=== PATIENT | male | born 1960 | race Hispanic/Latino ===

== ENCOUNTER 2017-11-05 16:14 | Emergency (ER) | payer SELFPAY ==
[2017-11-05] MEDS ORDERED: MAGNE/ALUM HYDROXD 30 ML UCUP ONE (17:33)
[2017-11-05] MEDS ORDERED: FAMOTIDINE 20 MG/2 ML VIAL IV ONE (17:33)
[2017-11-05] MEDS ORDERED: LIDOCAINE VISCOUS 2% SOLN 15 ML UDC ONE (17:33)
[2017-11-05 17:58] LABS: Absolute Lymphocytes (CBC) 2.8 K/uL (0.7-4.9); Absolute Monocytes 0.8 K/uL (0.1-1.3); Absolute Neutrophil 4.6 K/uL (1.8-8.0); Basophils % 0.8 % (0-1.3); Eosinophils % 1.5 % (0-4.4); Lymphocytes % 32.9 % (15.3-44.8); MCH 31.1 pg (27.0-35.0); MCV 88.8 fL (80-100); MPV 8.8 fL (7.6-11.3); Monocytes % 9.6 % (3.3-12.3)
[2017-11-05 18:10] LABS: ALT/SGPT 151 U/L (12-78); AST/SGOT 188 U/L (15-37); Albumin 3.4 g/dL (3.4-5.0); Alkaline Phosphatase 87 U/L (45-117); BUN Blood Urea Nitrogen 8 mg/dL (7-18); Bicarbonate 28 mmol/L (21-32); Bilirubin Direct 0.2 mg/dL (0-0.2); Bilirubin Total 0.6 mg/dL (0.2-1.0); Glucose Level 148 mg/dL (74-106); Lipase 112 U/L (73-393); Potassium 4.1 mmol/L (3.5-5.1); Sodium Level 138 mmol/L (136-145)
--- NOTE | 2017-11-05 18:45 | EDPHYS ---
Physician Documentation [facility] Name: Becki Freeman Age: 57 yrs Sex: Male : 1960 Arrival Date: 11/05/2017 Time: 16:15 Bed 7 Private MD: Out, [facility], [facility] ED Physician Evelio Saha HPI: 11/05 18:13 This 57 yrs old Male presents to ER via Ambulatory with complaints of rn Abdominal Pain. 18:13 The patient presents with abdominal pain in the epigastric area. Onset: The rn symptoms/episode began/occurred 4 hour(s) ago. The symptoms do not radiate. Associated signs and symptoms: Pertinent positives: nausea, Pertinent negatives: blood in stools, chest pain, constipation, diarrhea, dysuria, fever. The symptoms are described as achy. Severity of pain: At its worst the pain was mild in the emergency department the pain is unchanged. The patient has experienced similar episodes in the past. Reports epigastric abd pain, began after eating nachos, non-radiating, no fever, has had gallbladder and appendix removed. . Historical: - Allergies: 16:28 No Known Allergies; aj1 - Home Meds: 16:28 diabetes medication [Active]; thyroid medication [Active]; BP medication [Active]; aj1 - PMHx: 16:28 Diabetes - NIDDM; Hypothyroidism; Hypertension; aj1 - Social history:: Smoking status: Patient/guardian denies using tobacco. - Ebola Screening: : Patient denies travel to an Ebola-affected area in the 21 days before illness onset. - Family history:: not pertinent. - Hospitalizations: : No recent hospitalization is reported. ROS: 18:13 Constitutional: Negative for fever, chills, and weight loss, Neck: Negative for injury, rn pain, and swelling, Cardiovascular: Negative for chest pain, palpitations, and edema, Respiratory: Negative for shortness of breath, cough, wheezing, and pleuritic chest pain, Abdomen/GI: Negative for vomiting, diarrhea, and constipation, MS/Extremity: Negative for injury and deformity, Skin: Negative for injury, rash, and discoloration, Neuro: Negative for headache, weakness, numbness, tingling, and seizure. Exam: 18:13 Constitutional: This is a well developed, well nourished patient who is awake, alert, rn and in no acute distress. Head/Face: Normocephalic, atraumatic. Eyes: Pupils equal round and reactive to light, extra-ocular motions intact. Lids and lashes normal. Conjunctiva and sclera are non-icteric and not injected. Cornea within normal limits. Periorbital areas with no swelling, redness, or edema. Cardiovascular: Regular rate and rhythm with a normal S1 and S2. No gallops, murmurs, or rubs. Normal PMI, no JVD. No pulse deficits. Respiratory: Lungs have equal breath sounds bilaterally, clear to auscultation and percussion. No rales, rhonchi or wheezes noted. No increased work of breathing, no retractions or nasal flaring. Abdomen/GI: soft, mild epigastric abd tenderness, no rebound MS/ Extremity: Pulses equal, no cyanosis. Neurovascular intact. Full, normal range of motion. Equal circumference. Neuro: Awake and alert, GCS 15, oriented to person, place, time, and situation. Cranial nerves II-XII grossly intact. Motor strength 5/5 in all extremities. Sensory grossly intact. Cerebellar exam normal. Normal gait. Vital Signs: 16:30 BP 157 / 91; Pulse 82; Resp 18; Temp 97.2(TE); Pulse Ox 98% on R/A; Height 5 ft. 9 in. aj1 (175.26 cm) (R); Pain 8/10; 17:30 BP 156 / 86; Pulse 79; Resp 16; Pulse Ox 100% on R/A; hb 18:34 BP 153 / 95; Pulse 77; Resp 17; Pulse Ox 100% on R/A; Pain 3/10; hb MDM: 16:58 Patient medically screened. rn 18:40 Differential diagnosis: gastritis, gastroesophageal reflux disease, Hepatitis, rn non-specific abd pain, pancreatitis, Peptic Ulcer Disease. Data reviewed: vital signs, nurses notes, lab test result(s), and as a result, I will discharge patient. Counseling: I had a detailed discussion with the patient and/or guardian regarding: the historical points, exam findings, and any diagnostic results supporting the discharge/admit diagnosis, lab results, the need for outpatient follow up, to return to the emergency department if symptoms worsen or persist or if there are any questions or concerns that arise at home. Response to treatment: the patient's symptoms have markedly improved after treatment, and as a result, I will discharge patient. Special discussion: I discussed with the patient/guardian in detail that at this point there is no indication for admission to the hospital. It is understood, however, that if the symptoms persist or worsen the patient needs to return immediately for re-evaluation. Based on the history and exam findings, there is no indication for further emergent testing or inpatient evaluation. I discussed with the patient/guardian the need to see the suspender maker for further evaluation of the symptoms. ED course: Pt improved, will dc home with GI f/u, antacids, both prescription and OTC zantac.. 11/05 17:13 Order name: Basic Metabolic Panel; Complete Time: 18:13 rn 11/05 17:13 Order name: CBC with Diff; Complete Time: 18:09 rn 11/05 17:13 Order name: Hepatic Function; Complete Time: 18:13 rn 11/05 17:13 Order name: Lipase; Complete Time: 18:13 rn 11/05 18:41 Order name: Urine Dipstick--Ancillary (enter results) bd 11/05 17:13 Order name: IV Saline Lock; Complete Time: 17:43 rn 11/05 17:13 Order name: Labs collected and sent; Complete Time: 17:43 rn 11/05 17:14 Order name: EKG; Complete Time: 17:14 rn 11/05 17:14 Order name: EKG - Nurse/Tech; Complete Time: 17:35 rn Administered Medications: 17:42 Drug: GI Cocktail without - (Maalox Suspension 30 ml, Lidocaine Liquid 2 % 15 hb ml) Route: PO; 17:42 Drug: Pepcid 20 mg Route: IVP; Site: right antecubital; hb Disposition: 11/05/17 18:45 Discharged to Home. Impression: Gastritis, unspecified. - Condition is Stable. - Discharge Instructions: Gastritis, Adult. - Prescriptions for Nexium 20 mg Oral Capsule - take 1 capsule by ORAL route once daily; 20 capsule. Zantac 300 mg Oral Tablet - take 1 tablet by ORAL route At bedtime; 30 tablet. - Medication Reconciliation Form, Thank You Letter, Antibiotic Education, Prescription Opioid Use form. - Follow up: Enrique Dominguez MD; When: As needed; Reason: Recheck today's complaints, Re-evaluation by your physician. - Problem is new. - Symptoms have improved. Signatures: Dispatcher [employer] EDKaci Garcia RN RN aj1 Evelio Saha MD MD rn Baxter, Heather, RN RN Corrections: (The following items were deleted from the chart) 18:53 18:45 11/05/2017 18:45 Discharged to Home. Impression: Gastritis, unspecified. hb Condition is Stable. Forms are Medication Reconciliation Form, Thank You Letter, Antibiotic Education, Prescription Opioid Use. Follow up: Enrique Dominguez; When: As needed; Reason: Recheck today's complaints, Re-evaluation by your physician. Problem is new. Symptoms have improved. rn
--- NOTE | 2017-11-05 18:45 | ER ---
Nurse's Notes [facility] Name: Becki Freeman Age: 57 yrs Sex: Male : 1960 Arrival Date: 11/05/2017 Time: 16:15 Bed 7 Private MD: Out, [facility] Diagnosis: Gastritis, unspecified Presentation: 11/05 16:26 Presenting complaint: Patient states: Epigastric pain for the past 3-4 hours. Reports aj1 diarrhea, denies N/V. Denies fever. Transition of care: patient was not received from another setting of care. Onset of symptoms was November 05, 2017 at 13:00. Risk Assessment: Do you want to hurt yourself or someone else? Patient reports no desire to harm self or others. Initial Sepsis Screen: Does the patient meet any 2 criteria? No. Patient's initial sepsis screen is negative. Does the patient have a suspected source of infection? Yes: Acute abdominal pain. Care prior to arrival: None. 16:26 Method Of Arrival: Ambulatory aj1 16:26 Acuity: FRANCIE 3 aj1 Triage Assessment: 16:30 General: Appears in no apparent distress. uncomfortable, Behavior is calm, cooperative, aj1 appropriate for age. Pain: Complains of pain in epigastric area Pain currently is 8 out of 10 on a pain scale. Neuro: Level of Consciousness is awake, alert, obeys commands. Cardiovascular: Patient's skin is warm and dry. Respiratory: Airway is patent Respiratory effort is even, unlabored, Respiratory pattern is regular, symmetrical. GI: Reports upper abdominal pain, diarrhea, Patient currently denies nausea, vomiting. Historical: - Allergies: 16:28 No Known Allergies; aj1 - Home Meds: 16:28 diabetes medication [Active]; thyroid medication [Active]; BP medication [Active]; aj1 - PMHx: 16:28 Diabetes - NIDDM; Hypothyroidism; Hypertension; aj1 - Social history:: Smoking status: Patient/guardian denies using tobacco. - Ebola Screening: : Patient denies travel to an Ebola-affected area in the 21 days before illness onset. - Family history:: not pertinent. - Hospitalizations: : No recent hospitalization is reported. Screenin:43 Abuse screen: Denies threats or abuse. Denies injuries from another. Nutritional hb screening: No deficits noted. Tuberculosis screening: No symptoms or risk factors identified. Fall Risk None identified. Assessment: 17:43 General: Appears in no apparent distress. uncomfortable, Behavior is calm, cooperative. hb Pain: Pain currently is 4 out of 10 on a pain scale. Neuro: Level of Consciousness is awake, alert, obeys commands, Oriented to person, place, time, situation, Pupils are PERRLA. Cardiovascular: Heart tones S1 S2 present Capillary refill < 3 seconds Patient's skin is warm and dry. Parent/caregiver reports patient has had chest pain. Respiratory: Airway is patent Trachea midline Respiratory effort is even, unlabored, Respiratory pattern is regular, symmetrical, Breath sounds are clear bilaterally. GI: Abdomen is non-distended, Bowel sounds present X 4 quads. Abd is soft and non tender X 4 quads. Reports upper abdominal pain, nausea. : No signs and/or symptoms were reported regarding the genitourinary system. EENT: No signs and/or symptoms were reported regarding the EENT system. Derm: No signs and/or symptoms reported regarding the dermatologic system. Skin is intact, is healthy with good turgor. Musculoskeletal: No signs and/or symptoms reported regarding the musculoskeletal system. 18:34 Reassessment: Patient appears in no apparent distress at this time. Patient and/or hb family updated on plan of care and expected duration. Pain level reassessed. Patient is alert, oriented x 3, equal unlabored respirations, skin warm/dry/pink. Vital Signs: 16:30 BP 157 / 91; Pulse 82; Resp 18; Temp 97.2(TE); Pulse Ox 98% on R/A; Height 5 ft. 9 in. aj1 (175.26 cm) (R); Pain 8/10; 17:30 BP 156 / 86; Pulse 79; Resp 16; Pulse Ox 100% on R/A; hb 18:34 BP 153 / 95; Pulse 77; Resp 17; Pulse Ox 100% on R/A; Pain 3/10; hb ED Course: 16:15 Patient arrived in ED. sb2 16:16 Out, of [facility] is Private Physician. sb2 16:27 Triage completed. aj1 16:30 Arm band placed on Patient placed in waiting room. aj1 16:58 Evelio Saha MD is Attending Physician. rn 17:32 Inserted saline lock: 20 gauge in right antecubital area, using aseptic technique. hb Blood collected. 17:35 EKG done, by ED staff, reviewed by Evelio Saha MD. em1 17:42 Deborah Ortiz, RN is Primary Nurse. hb 17:43 Patient has correct armband on for positive identification. Bed in low position. Call hb light in reach. Side rails up X 1. 18:45 Enrique Dominguez MD is Referral Physician. rn 18:52 No provider procedures requiring assistance completed. IV discontinued, intact, hb bleeding controlled, No redness/swelling at site. Pressure dressing applied. Administered Medications: 17:42 Drug: GI Cocktail without - (Maalox Suspension 30 ml, Lidocaine Liquid 2 % 15 hb ml) Route: PO; 17:42 Drug: Pepcid 20 mg Route: IVP; Site: right antecubital; hb Outcome: 18:45 Discharge ordered by MD. rn 18:52 Discharged to home ambulatory. hb 18:52 Condition: stable 18:52 Discharge instructions given to patient, family, Instructed on discharge instructions, follow up and referral plans. medication usage, Demonstrated understanding of instructions, follow-up care, medications, Prescriptions given X 2. 18:53 Patient left the ED. hb Signatures: Kaci Gagnon RN RN aj1 Evelio Saha MD MD rn Martinez, Eric em1 Deborah Ortiz, RADHA RN Florencia Crockett sb2
[2017-11-05 19:01] LABS: Urine Blood NEGATIVE (NEG); Urine Glucose NEGATIVE (NEG); Urine Protein NEGATIVE (NEG); Urine Specific Gravity 1.025 (1.005-1.030); Urine pH 7.5 (5.0-7.0)
--- NOTE | 2017-11-06 07:02 | EKG ---
Test Date: 2017-11-05 Test Time: 17:31:49 A And P Technician: JEMIMA MEASUREMENT RESULTS: Intervals: Rate: 78 WI: 178 QRSD: 94 QT: 370 QTc: 421 Braggs: P: 47 WI: 178 QRS: 71 T: 47 INTERPRETIVE STATEMENTS: Normal sinus rhythm Normal ECG No previous ECG available for comparison Electronically Signed On 11-06-17 07:01:07 CDT by Aiden Stanford
== END 2017-11-05 18:53 | disposition home or self-care (01) ==
LOC: ER 16:14
DX: K29.70 Gastritis, unspecified, without bleeding (principal); E03.9 Hypothyroidism, unspecified; I10 Essential (primary) hypertension; E11.9 Type 2 diabetes mellitus without complications
CPT/HCPCS: 36415; 80048; 80076; 81003; 83690; 85025; 93005; 96374; 99284